=== PATIENT | male | born 1970 | race Caucasian/White ===

== ENCOUNTER 2021-04-03 16:02 | Emergency (ER) | payer OTHER ==
[2021-04-03 16:14] VITALS: TEMP 97.7; BMI 29.5
[2021-04-03 17:14] LABS: BASO % 1.1 % (0-2.0); EOS % 2.6 % (0-4.5); HEMATOCRIT 49.6 % (35.4-49); HEMOGLOBIN 16.7 GM/dL (11.7-16.9); LYMPH % 16.8 % (8-40); MCHC 33.7 g/dl (32.0-35.9); MEAN CELL VOLUME 85.8 fl (80-96); MEAN PLT VOLUME 10.3 fl (7.5-11.1); MONO % 9.7 % (3.8-10.2); NEUT % 69.8 % (42.8-82.8); PLATELET COUNT 219 K/MM3 (134-434); RBC 5.78 M/mm3 (4.00-5.60); RDW 13.4 % (11.9-15.9); WHITE BLOOD COUNT 10.3 K/mm3 (4.0-10.0)
[2021-04-03] MEDS ORDERED: ACETAMINOPHEN 325 MG TABLET (FP) PO ONE (17:41)
[2021-04-03 17:44] LABS: CHLORIDE 103 mmol/L (98-107); SODIUM 139 mmol/L (136-145)
[2021-04-03 17:46] LABS: ALBUMIN 4.6 g/dl (3.4-5.0); ANION GAP 7 MMOL/L (8-16); BLOOD UREA NITROGEN 12.3 mg/dL (7-18); CO2 29 mmol/L (21-32); GLUCOSE,RANDOM 90 mg/dL (74-106)
[2021-04-03 17:49] LABS: CREATININE 1.2 mg/dL (0.55-1.3); SGPT/ALT 29 U/L (13-61)
[2021-04-03 17:50] LABS: SGOT/AST 25 U/L (15-37)
[2021-04-03 17:51] LABS: BILIRUBIN,TOTAL 1.6 mg/dL (0.2-1); TOT PROT 7.9 g/dl (6.4-8.2)
[2021-04-03 17:52] LABS: ALK PHOS 138 U/L (45-117)
[2021-04-03] MEDS ORDERED: ACETAMINOPHEN 325 MG TABLET (FP) ONE (18:02)
[2021-04-03 20:04] VITALS: BP 145/100; PULSE 84
== END 2021-04-03 22:33 | disposition home or self-care (01) ==
LOC: JER 16:02
DX: R07.9 Chest pain, unspecified (principal)
CPT/HCPCS: 36415; 71046-TC-FY; 74019-TC-FY; 80053; 84132; 84484; 85025; 93005; 93010; 99285-25

== ENCOUNTER 2024-06-15 09:52 | Inpatient (IN) | payer BC, OTHER ==
[2024-06-15] MEDS ORDERED: oxyCODONE HCL 5 MG TABLET ONE (10:51)
[2024-06-15] MEDS: oxyCODONE HCL 5 MG TABLET PO ONE (10:54)
[2024-06-15 14:41] LABS: BASO % 0.4 % (0-2.0); EOS % 1.1 % (0-4.5); HEMATOCRIT 51.2 % (35.4-49); HEMOGLOBIN 17.2 GM/dL (11.7-16.9); LYMPH % 8.3 % (8-40); MCH 28.7 pg (25.7-33.7); MCHC 33.5 g/dl (32.0-35.9); MEAN CELL VOLUME 85.6 fl (80-96); MEAN PLT VOLUME 8.8 fl (7.5-11.1); MONO % 6.5 % (3.8-10.2); NEUT % 83.7 % (42.8-82.8); PLATELET COUNT 350 10^3/uL (134-434); RBC 5.98 M/mm3 (4.00-5.60); WHITE BLOOD COUNT 14.5 K/mm3 (4.0-10.0)
[2024-06-15 15:11] LABS: POTASSIUM 4.4 mmol/L (3.5-5.1)
[2024-06-15 15:14] LABS: BLOOD UREA NITROGEN 20.4 mg/dL (7-18)
[2024-06-15 15:19] LABS: BILIRUBIN,TOTAL 1.5 mg/dL (0.2-1); TOT PROT 7.7 g/dl (6.4-8.2)
[2024-06-15] MEDS ORDERED: KETOROLAC TROMETHAMINE 30 MG/1 ML VIAL ONE (16:49)
[2024-06-15] MEDS: KETOROLAC TROMETHAMINE 30 MG/1 ML VIAL IVPUSH PRN (16:56)
[2024-06-15] MEDS ORDERED: morphine SULFATE 4 MG/ML VIAL ONE (19:39)
[2024-06-15] MEDS: morphine SULFATE 4 MG/ML VIAL IVPUSH PRN (19:47)
[2024-06-16 03:35] VITALS: BMI 26.6
[2024-06-16 09:47] LABS: HEMATOCRIT 45.3 % (35.4-49); HEMOGLOBIN 15.6 GM/dL (11.7-16.9); MCH 29.4 pg (25.7-33.7); MCHC 34.5 g/dl (32.0-35.9); MEAN CELL VOLUME 85.2 fl (80-96); MEAN PLT VOLUME 9.1 fl (7.5-11.1); PLATELET COUNT 293 10^3/uL (134-434); RBC 5.32 M/mm3 (4.00-5.60); RDW 13.6 % (11.9-15.9); WHITE BLOOD COUNT 9.2 K/mm3 (4.0-10.0)
[2024-06-16 10:00] LABS: POTASSIUM 4.4 mmol/L (3.5-5.1)
[2024-06-16 10:12] LABS: CALCIUM 9.2 mg/dL (8.5-10.1)
[2024-06-16 10:13] LABS: ALBUMIN 3.4 g/dl (3.4-5.0); BLOOD UREA NITROGEN 24.5 mg/dL (7-18)
[2024-06-16 10:14] LABS: BILIRUBIN,TOTAL 1.2 mg/dL (0.2-1); TOT PROT 6.4 g/dl (6.4-8.2)
[2024-06-16 10:19] LABS: CREATININE 0.9 mg/dL (0.55-1.3)
[2024-06-16] MEDS: morphine SULFATE 4 MG/ML VIAL IVPUSH ONE (10:50)
[2024-06-16] MEDS: predniSONE 20 MG TABLET (UD) PO SCH (10:51)
[2024-06-16] MEDS: ENOXAPARIN NA (PORCINE) 40 MG/0.4 ML DISP.SYRIN SQ SCH (10:51)
[2024-06-16] MEDS: KETOROLAC TROMETHAMINE 30 MG/1 ML VIAL IVPUSH ONE (11:05)
[2024-06-16] MEDS: methylPREDNISolone NA SUCC 125 MG/2 ML VIAL IVPB ONE (11:10)
[2024-06-16] MEDS: GABAPENTIN 400 MG CAPSULE PO SCH (11:42)
[2024-06-16] MEDS: CYCLOBENZAPRINE HCL 5 MG TABLET PO SCH (14:24)
[2024-06-16] MEDS: KETOROLAC TROMETHAMINE 15 MG/ML VIAL IVPUSH SCH (18:43)
[2024-06-16] MEDS: ACETAMINOPHEN 1000 MG/100 ML BAG IVPB SCH (22:05)
[2024-06-17] MEDS: PANTOPRAZOLE 40 MG TABLET PO SCH (09:20)
[2024-06-17] MEDS: POLYETHYLENE GLYCOL (HEALTHYLAX) 3350 17 GM PACKET PO SCH (09:21)
[2024-06-17 10:27] LABS: BASO % 0.4 % (0-2.0); EOS % 0.5 % (0-4.5); HEMATOCRIT 43.7 % (35.4-49); HEMOGLOBIN 14.6 GM/dL (11.7-16.9); LYMPH % 9.1 % (8-40); MCH 28.6 pg (25.7-33.7); MCHC 33.3 g/dl (32.0-35.9); MEAN CELL VOLUME 85.8 fl (80-96); MONO % 7.1 % (3.8-10.2); NEUT % 82.9 % (42.8-82.8); PLATELET COUNT 300 10^3/uL (134-434); RDW 13.6 % (11.9-15.9); WHITE BLOOD COUNT 14.9 K/mm3 (4.0-10.0)
[2024-06-17 10:42] LABS: POTASSIUM 4.1 mmol/L (3.5-5.1)
[2024-06-17 10:44] LABS: CALCIUM 9.1 mg/dL (8.5-10.1); MAGNESIUM 2.4 mg/dL (1.8-2.4)
[2024-06-17 10:45] LABS: BLOOD UREA NITROGEN 18.2 mg/dL (7-18)
[2024-06-17 10:48] LABS: PHOSPHOROUS 3.2 mg/dL (2.5-4.9)
[2024-06-17 10:49] LABS: ALBUMIN 3.3 g/dl (3.4-5.0); BILIRUBIN,TOTAL 0.8 mg/dL (0.2-1); CREATININE 0.8 mg/dL (0.55-1.3)
[2024-06-17 10:50] LABS: TOT PROT 6.6 g/dl (6.4-8.2)
[2024-06-17] MEDS: SENNOSIDES 8.6MG TABLET (FP) PO SCH (21:24)
[2024-06-18] MEDS: GABAPENTIN 400 MG CAPSULE PO SCH (06:19)
[2024-06-18 10:16] LABS: BASO % 0.4 % (0-2.0); EOS % 0.8 % (0-4.5); HEMATOCRIT 42.1 % (35.4-49); HEMOGLOBIN 14.2 GM/dL (11.7-16.9); LYMPH % 13.2 % (8-40); MCHC 33.8 g/dl (32.0-35.9); MEAN CELL VOLUME 85.9 fl (80-96); MEAN PLT VOLUME 9.5 fl (7.5-11.1); MONO % 7.2 % (3.8-10.2); NEUT % 78.4 % (42.8-82.8); PLATELET COUNT 276 10^3/uL (134-434); RDW 13.9 % (11.9-15.9); WHITE BLOOD COUNT 13.3 K/mm3 (4.0-10.0)
[2024-06-18 10:21] LABS: POTASSIUM 4.5 mmol/L (3.5-5.1)
[2024-06-18 10:25] LABS: ALBUMIN 3.3 g/dl (3.4-5.0); BLOOD UREA NITROGEN 19.4 mg/dL (7-18); CALCIUM 9.1 mg/dL (8.5-10.1)
[2024-06-18 10:28] LABS: CREATININE 0.8 mg/dL (0.55-1.3)
[2024-06-18 10:32] LABS: TOT PROT 6.3 g/dl (6.4-8.2)
[2024-06-18] MEDS: LIDOCAINE 4% PATCH TP SCH (17:42)
[2024-06-18] MEDS: NAPROXEN 500 MG TABLET PO PRN (17:42)
[2024-06-18] MEDS: LIDOCAINE PATCH REMOVAL MC SCH (22:45)
[2024-06-18] MEDS: ACETAMINOPHEN 500 MG TABLET (FP) PO SCH (22:46)
[2024-06-19 09:56] LABS: BASO % 0.5 % (0-2.0); EOS % 1.1 % (0-4.5); HEMATOCRIT 42.8 % (35.4-49); HEMOGLOBIN 14.2 GM/dL (11.7-16.9); LYMPH % 14.7 % (8-40); MCH 28.8 pg (25.7-33.7); MCHC 33.3 g/dl (32.0-35.9); MEAN CELL VOLUME 86.5 fl (80-96); MEAN PLT VOLUME 9.4 fl (7.5-11.1); MONO % 7.8 % (3.8-10.2); NEUT % 75.9 % (42.8-82.8); PLATELET COUNT 248 10^3/uL (134-434); RBC 4.95 M/mm3 (4.00-5.60); RDW 13.8 % (11.9-15.9); WHITE BLOOD COUNT 12.3 K/mm3 (4.0-10.0)
[2024-06-19 10:01] LABS: INR 0.95 (0.83-1.09); PROTHROMBIN TIME (PATIENT) 10.7 SEC (9.7-13.0)
[2024-06-19 10:21] LABS: POTASSIUM 4.3 mmol/L (3.5-5.1)
[2024-06-19 10:33] LABS: ALBUMIN 3.3 g/dl (3.4-5.0); BLOOD UREA NITROGEN 16.7 mg/dL (7-18)
[2024-06-19 10:36] LABS: CREATININE 0.8 mg/dL (0.55-1.3)
[2024-06-19 10:38] LABS: BILIRUBIN,TOTAL 0.8 mg/dL (0.2-1); TOT PROT 6.2 g/dl (6.4-8.2)
[2024-06-19] MEDS ORDERED: ceFAZolin SODIUM 1 GM VIAL ONE (11:04)
[2024-06-19] MEDS ORDERED: THROMBIN (BOVINE) 5,000 UNIT VIAL TP ONE (11:04)
[2024-06-19] MEDS ORDERED: BUPIVACAINE HCL/PF 0.5% (5MG/ML) 10 ML VIAL ONE ×2 (11:05→11:09)
[2024-06-19] MEDS ORDERED: HYDROmorphone HCl 2 MG/ML VIAL ONE (13:47)
[2024-06-19] MEDS ORDERED: ROCURONIUM BROMIDE 50 MG/5 ML SYRINGE ONE ×2 (13:48→13:59)
[2024-06-19] MEDS ORDERED: MIDAZOLAM HCL 2 MG/2 ML SINGLE DOSE VIAL ONE (13:48)
[2024-06-19] MEDS ORDERED: SUCCINYLCHOLINE CHLORIDE 200 MG/10 ML SYRINGE ONE (13:48)
[2024-06-19] MEDS ORDERED: PROPOFOL 20 ML ONE ×3 (13:48→15:43)
[2024-06-19] MEDS: ceFAZolin SODIUM 1 GM VIAL IVPB ONE (13:56)
[2024-06-19] MEDS: THROMBIN (BOVINE) 20,000 UNIT VIAL TP ONE (14:59)
[2024-06-19] MEDS: MIDAZOLAM HCL 2 MG/2 ML SINGLE DOSE VIAL IVPUSH ONE (17:04)
[2024-06-19] MEDS ORDERED: NAPROXEN 500 MG TABLET PO PRN (17:12)
[2024-06-19] MEDS ORDERED: diphenhydrAMINE HCL 25 MG CAPSULE (FP) PO PRN (17:12)
[2024-06-19] MEDS ORDERED: ONDANSETRON 4 MG/2 ML VIAL IVPUSH PRN (17:12)
[2024-06-19] MEDS ORDERED: morphine SULFATE 4 MG/ML VIAL IVPUSH PRN ×2 (17:12)
[2024-06-19] MEDS ORDERED: LACTATED RINGERS SOLUTION 1,000 ML IV SCH (17:15)
[2024-06-19] MEDS: CEFAZOLIN 1 GM in DEXTROSE 5%-WATER - 50 ML IVPB SCH (21:47)
[2024-06-19] MEDS: POLYETHYLENE GLYCOL (HEALTHYLAX) 3350 17 GM PACKET PO SCH (21:47)
[2024-06-19] MEDS: ACETAMINOPHEN 500 MG TABLET (FP) PO SCH (21:47)
[2024-06-19] MEDS: GABAPENTIN 400 MG CAPSULE PO SCH (21:48)
[2024-06-19] MEDS: oxyCODONE HCL 5 MG TABLET PO PRN (21:48)
[2024-06-19] MEDS: DOCUSATE SODIUM 100 MG CAPSULE (FP) PO SCH (21:49)
[2024-06-19] MEDS: SENNOSIDES 8.6MG TABLET (FP) PO SCH (21:49)
[2024-06-19] MEDS: LIDOCAINE PATCH REMOVAL MC SCH (22:24)
[2024-06-20] MEDS: LACTATED RINGERS SOLUTION 1,000 ML/1,000 ML INFUS.BAG IV SCH (06:23)
[2024-06-20 09:08] LABS: HEMATOCRIT 36.9 % (35.4-49); HEMOGLOBIN 12.3 GM/dL (11.7-16.9); MCH 28.6 pg (25.7-33.7); MCHC 33.4 g/dl (32.0-35.9); MEAN CELL VOLUME 85.4 fl (80-96); MEAN PLT VOLUME 9.4 fl (7.5-11.1); PLATELET COUNT 253 10^3/uL (134-434); RBC 4.31 M/mm3 (4.00-5.60); RDW 13.7 % (11.9-15.9); WHITE BLOOD COUNT 17.3 K/mm3 (4.0-10.0)
[2024-06-20 09:31] LABS: POTASSIUM 4.1 mmol/L (3.5-5.1)
[2024-06-20] MEDS: FOLIC ACID 1 MG TABLET (FP) PO SCH (09:37)
[2024-06-20] MEDS: predniSONE 20 MG TABLET (UD) PO SCH (09:37)
[2024-06-20] MEDS: PANTOPRAZOLE 40 MG TABLET PO SCH (09:37)
[2024-06-20] MEDS: LIDOCAINE 4% PATCH TP SCH (09:38)
[2024-06-20] MEDS: oxyCODONE HCL 5 MG TABLET PO PRN (09:44)
[2024-06-20 09:51] LABS: CALCIUM 8.7 mg/dL (8.5-10.1)
[2024-06-20 09:52] LABS: ALBUMIN 2.9 g/dl (3.4-5.0); MAGNESIUM 2.1 mg/dL (1.8-2.4)
[2024-06-20 09:55] LABS: CREATININE 0.7 mg/dL (0.55-1.3); PHOSPHOROUS 3.2 mg/dL (2.5-4.9)
[2024-06-20 09:56] LABS: BILIRUBIN,TOTAL 0.7 mg/dL (0.2-1); TOT PROT 5.3 g/dl (6.4-8.2)
[2024-06-21 08:39] LABS: BASO % 0.3 % (0-2.0); EOS % 0.1 % (0-4.5); HEMATOCRIT 38.7 % (35.4-49); LYMPH % 10.7 % (8-40); MCH 28.8 pg (25.7-33.7); MCHC 33.5 g/dl (32.0-35.9); MEAN CELL VOLUME 86.1 fl (80-96); MEAN PLT VOLUME 9.8 fl (7.5-11.1); MONO % 13.5 % (3.8-10.2); NEUT % 75.4 % (42.8-82.8); PLATELET COUNT 205 10^3/uL (134-434); RBC 4.49 M/mm3 (4.00-5.60); RDW 13.8 % (11.9-15.9); WHITE BLOOD COUNT 8.1 K/mm3 (4.0-10.0)
[2024-06-21 08:54] LABS: POTASSIUM 3.7 mmol/L (3.5-5.1)
[2024-06-21 08:57] LABS: CALCIUM 8.6 mg/dL (8.5-10.1)
[2024-06-21 08:58] LABS: BLOOD UREA NITROGEN 9.7 mg/dL (7-18)
[2024-06-21 09:01] LABS: CREATININE 0.9 mg/dL (0.55-1.3)
[2024-06-21] MEDS ORDERED: KETOROLAC TROMETHAMINE 30 MG/1 ML VIAL IM SCH (10:45)
[2024-06-21] MEDS ORDERED: ACETAMINOPHEN 500 MG TABLET (FP) PO SCH (10:45)
[2024-06-21] MEDS: ENOXAPARIN NA (PORCINE) 40 MG/0.4 ML DISP.SYRIN SQ SCH (12:02)
[2024-06-21] MEDS: CYCLOBENZAPRINE HCL 5 MG TABLET PO SCH (13:30)
[2024-06-21] MEDS: KETOROLAC TROMETHAMINE 15 MG/ML VIAL IM SCH (16:26)
[2024-06-21] MEDS: ACETAMINOPHEN 500 MG TABLET (FP) PO SCH (17:13)
[2024-06-22 09:45] LABS: HEMATOCRIT 37.6 % (35.4-49); HEMOGLOBIN 12.6 GM/dL (11.7-16.9); MCH 28.9 pg (25.7-33.7); MCHC 33.5 g/dl (32.0-35.9); MEAN CELL VOLUME 86.5 fl (80-96); MEAN PLT VOLUME 10.2 fl (7.5-11.1); PLATELET COUNT 223 10^3/uL (134-434); RBC 4.35 M/mm3 (4.00-5.60); RDW 13.9 % (11.9-15.9); WHITE BLOOD COUNT 8.4 K/mm3 (4.0-10.0)
[2024-06-22 10:03] LABS: POTASSIUM 3.8 mmol/L (3.5-5.1)
[2024-06-22 10:06] LABS: ALBUMIN 2.8 g/dl (3.4-5.0); CALCIUM 8.9 mg/dL (8.5-10.1)
[2024-06-22 10:07] LABS: BLOOD UREA NITROGEN 13.7 mg/dL (7-18)
[2024-06-22 10:09] LABS: CREATININE 0.7 mg/dL (0.55-1.3)
[2024-06-22 10:11] LABS: TOT PROT 5.7 g/dl (6.4-8.2)
[2024-06-22] MEDS ORDERED: GABAPENTIN 400 MG CAPSULE PO SCH (11:09)
[2024-06-22] MEDS: GABAPENTIN 400 MG, GABAPENTIN 100 MG PO SCH (14:49)
[2024-06-22] MEDS: NAPROXEN 500 MG TABLET PO SCH (14:50)
[2024-06-22] MEDS: oxyCODONE HCL 5 MG TABLET PO PRN (19:44)
[2024-06-23 10:18] LABS: HEMATOCRIT 37.3 % (35.4-49); HEMOGLOBIN 12.3 GM/dL (11.7-16.9); MCH 28.6 pg (25.7-33.7); MEAN CELL VOLUME 86.6 fl (80-96); MEAN PLT VOLUME 9.8 fl (7.5-11.1); PLATELET COUNT 266 10^3/uL (134-434); RBC 4.31 M/mm3 (4.00-5.60); RDW 13.9 % (11.9-15.9); WHITE BLOOD COUNT 8.1 K/mm3 (4.0-10.0)
[2024-06-23 10:48] LABS: ALBUMIN 2.9 g/dl (3.4-5.0); MAGNESIUM 2.1 mg/dL (1.8-2.4)
[2024-06-23 10:49] LABS: CALCIUM 8.8 mg/dL (8.5-10.1)
[2024-06-23 10:51] LABS: CREATININE 0.7 mg/dL (0.55-1.3); PHOSPHOROUS 2.7 mg/dL (2.5-4.9)
[2024-06-23 10:52] LABS: BILIRUBIN,TOTAL 0.8 mg/dL (0.2-1); TOT PROT 5.7 g/dl (6.4-8.2)
[2024-06-24] MEDS ORDERED: predniSONE 20 MG TABLET (UD) PO SCH (15:34)
[2024-06-25] MEDS: predniSONE 20 MG TABLET (UD) PO SCH (09:07)
[2024-06-25 09:10] LABS: HEMATOCRIT 37.2 % (35.4-49); HEMOGLOBIN 12.1 GM/dL (11.7-16.9); MCH 28.5 pg (25.7-33.7); MCHC 32.6 g/dl (32.0-35.9); MEAN CELL VOLUME 87.4 fl (80-96); MEAN PLT VOLUME 9.5 fl (7.5-11.1); PLATELET COUNT 315 10^3/uL (134-434); RBC 4.25 M/mm3 (4.00-5.60); RDW 13.8 % (11.9-15.9); WHITE BLOOD COUNT 8.7 K/mm3 (4.0-10.0)
[2024-06-25 09:41] LABS: POTASSIUM 4.8 mmol/L (3.5-5.1)
[2024-06-25 09:49] LABS: CALCIUM 8.9 mg/dL (8.5-10.1)
[2024-06-25 09:50] LABS: BLOOD UREA NITROGEN 15.6 mg/dL (7-18)
[2024-06-25 09:53] LABS: CREATININE 0.8 mg/dL (0.55-1.3)
[2024-06-25 09:54] LABS: BILIRUBIN,TOTAL 0.8 mg/dL (0.2-1); TOT PROT 5.8 g/dl (6.4-8.2)
[2024-06-25 15:34] VITALS: BP 122/78; PULSE 86; RESP 18; TEMP 98.1
== END 2024-06-25 16:35 | DRG 520 ==
LOC: JER 09:52 → JERBED 16:50 → J6S 21:47 → OBSVTOIN 06-18 09:57
PROVIDERS: ADMIT Internal Medicine; ATTEND Internal Medicine
PROC: 0SB20ZZ Excision of Lumbar Vertebral Disc, Open Approach (ICD-10-PCS; principal; 2024-06-19 13:00)
DX: M51.16 Intervertebral disc disorders with radiculopathy, lumbar region (principal); M48.061 Spinal stenosis, lumbar region without neurogenic claudication; R33.9 Retention of urine, unspecified; M16.0 Bilateral primary osteoarthritis of hip
CPT/HCPCS: 36415; 72100-TC-FY; 72148-TC; 73562-TC-RT-FY; 73721-RT-TC; 76000-TC-FY; 80048; 80053; 83735; 84100; 85025; 85027; 85610; 88304-TC; 93005; 93010; 94760; 97116-GP; 97161-GP; 99285-25; G0378; J0131